=== PATIENT | female | born 1975 | race Caucasian/White ===

== ENCOUNTER 2016-11-30 21:45 | Emergency (ER) | payer MEDICAID, OTHER ==
[~2016-11-30] VITALS: Ht 160 cm; Wt 82.0 kg
[~2016-11-30 21:45] MED LIST: ACET500C5 PO; PRENATAL VITAMINS
[2016-11-30 21:49] VITALS: Ht 160 cm; Wt 82.0 kg
[2016-12-01] MEDS ORDERED: TYL500 PO (02:10)
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
[2016-12-01 02:52] VITALS: BP 135/81; PULSE 82; RESP 18; TEMP 98.7
== END 2016-12-01 02:52 | disposition home or self-care (01) ==
LOC: FTE 21:45
DX: S29.001A Unspecified injury of muscle and tendon of front wall of thorax, initial encounter (principal); S39.92XA Unspecified injury of lower back, initial encounter; V49.50XA Passenger injured in collision with unspecified motor vehicles in traffic accident, initial encounter
CPT/HCPCS: 99283

== ENCOUNTER 2018-07-26 17:09 | Emergency (ER) | payer MEDICAID, OTHER ==
[~2018-07-26] VITALS: Ht 167.6 cm; Wt 80.0 kg
[~2018-07-26 17:09] MED LIST changes: +TYL500 PO
[2018-07-26] MEDS ORDERED: ONDANSETRON 4 MG INJ IV STA (17:14)
[2018-07-26] MEDS ORDERED: SOD CHLORIDE 0.9% 1,000 ML IV STA (17:14)
[2018-07-26] MEDS ORDERED: KETOROLAC 15 MG INJ IV STA (17:14)
[2018-07-26 17:16] VITALS: Ht 167.6 cm; Wt 80.0 kg
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
[2018-07-26] MEDS ORDERED: CYCL10TA7 PO (18:26)
[2018-07-26] MEDS ORDERED: NAPR-985 PO (18:26)
[2018-07-26 18:45] VITALS: BP 119/72; PULSE 75; RESP 20
== END 2018-07-26 18:53 | disposition home or self-care (01) ==
LOC: E/R 17:09
DX: S33.5XXA Sprain of ligaments of lumbar spine, initial encounter (principal); S39.91XA Unspecified injury of abdomen, initial encounter; X58.XXXA Exposure to other specified factors, initial encounter; Y92.9 Unspecified place or not applicable
CPT/HCPCS: 36415; 74176; 80053; 81001; 81025; 83690; 84703; 85025; 96374; 96375; J1885; J2405; J7030; Z7502